=== PATIENT | female | born 1930 | race Caucasian/White ===

== ENCOUNTER 2017-07-15 21:11 | Emergency (ER) | payer MEDICARE | END 2017-07-15 22:32 | disposition home or self-care (01) | LOC: D.ER 21:11 | DX: S00.03XA Contusion of scalp, initial encounter (principal); W22.8XXA Striking against or struck by other objects, initial encounter; Y93.01 Activity, walking, marching and hiking; Y92.511 Restaurant or cafe as the place of occurrence of the external cause; S01.01XA Laceration without foreign body of scalp, initial encounter; I10 Essential (primary) hypertension; R11.2 Nausea with vomiting, unspecified ==

== ENCOUNTER 2019-08-15 12:06 | Outpatient (CLI) | payer MEDICARE ==
[~2019-08-15] VITALS: Ht 170.2 cm; Wt 61.4 kg
[2019-08-15 13:09] VITALS: Ht 170.2 cm; Wt 61.4 kg
--- NOTE | 2019-08-15 15:42 | NUR ---
TRANSFUSION COMPLETED. IV REMOVED WITH [facility] INTACT. DC'D HOME. ADVISED TO CALL OR COME BACK IF ANY PROBLEMS.
== END 2019-08-15 15:41 | disposition home or self-care (01) ==
LOC: D.OPS 12:06
PROVIDERS: ATTEND Internal Medicine Geriatric Medicine
DX: D64.9 Anemia, unspecified (principal)